=== PATIENT | male | born 1975 ===

== ENCOUNTER 2021-08-15 17:35 | Emergency (ER) | payer MEDICAID ==
[~2021-08-15] VITALS: Ht 182.9 cm; Wt 99.8 kg
[2021-08-15 17:48] VITALS: BP 140/105
[2021-08-15 18:32] LABS: BASOPHILS % (AUTO) 1 % (0-1); EOSINOPHILS % (AUTO) 1 % (1-7); LYMPHOCYTES % (AUTO) 18 % (22-44); MEAN CORPUSCULAR HEMOGLOBIN 29.5 pg (27.5-34.5); MEAN CORPUSCULAR HGB CONC 34.2 g/dL (33.2-36.2); MEAN PLATELET VOLUME 8.3 fL (7.4-10.4); MONOCYTES % (AUTO) 7 % (2-9); NEUTROPHILS % (AUTO) 73 % (42-75); PLATELET COUNT 297 x10^3/uL (130-400); RED BLOOD COUNT 5.02 x10^6/uL (4.38-5.82); RED CELL DISTRIBUTION WIDTH 13.6 % (9.4-14.8)
[2021-08-15 18:45] LABS: ALBUMIN 3.4 g/dL (3.4-5.0); ANION GAP 6 mmol/L (5-15); CALCIUM 8.2 mg/dL (8.5-10.1); CHLORIDE 108 mmol/L (98-107)
[2021-08-15 18:49] LABS: ALANINE AMINOTRANSFERASE 96 U/L (12-78); ALKALINE PHOSPHATASE 80 U/L (45-117); BILIRUBIN,TOTAL 0.7 mg/dL (0.2-1.0); CREATININE 1.15 mg/dL (0.7-1.3); TOTAL PROTEIN 7.3 g/dL (6.4-8.2)
--- NOTE | 2021-08-15 20:27 | NUR ---
PT CONTINUES AWAITING ROOM PLACEMENT. PT NOTIFIED LOBBY REGISTRATION THAT HE IS LEAVING.
== END 2021-08-15 22:05 | disposition left against medical advice (07) ==
LOC: ED 20:27
DX: R04.2 Hemoptysis (principal); R94.31 Abnormal electrocardiogram [ECG] [EKG]
CPT/HCPCS: 36415; 71045; 80053; 85025; 85379; 93005; 99285